=== PATIENT | female | born 1935 | race African-American/Black ===

== ENCOUNTER 2020-10-07 22:39 | Emergency (ER) | payer MEDICARE, SELFPAY ==
--- NOTE | ~2020-10-07 | CT_ITS ---
EXAMINATION: CT brain wo con DATE: 10/07/2020 23:25 INDICATION: Headache. Patient on anticoagulants. TECHNIQUE: Computed tomography (CT) of the head was performed without intravenous contrast. The dose- length product was 908.00 mGy-cm. Automated exposure control and iterative reconstruction technique w ere employed. COMPARISON: CT dated 10/09/2018 FINDINGS: Stable extensive encephalomalacia of the right cerebral hemisphere. Encephalomalacia involv es the right frontal, parietal, occipital and temporal lobes. There is an old right craniotomy defect . There is ex vacuo dilation of the right lateral ventricle. There are scattered moderate periventric ular and subcortical white matter changes, most likely related to small vessel ischemic disease (micr oangiopathy). No acute infarction or hemorrhage. Paranasal sinuses and mastoids are pneumatized. IMPRESSION: 1. No acute intracranial abnormality. No significant interval change. Reviewed, dictated and finalized at location A.
--- NOTE | ~2020-10-07 | CT_ITS ---
EXAMINATION: CT cervical spine wo con DATE: 10/07/2020 23:25 INDICATION: Neck pain status post fall TECHNIQUE: Computed tomography (CT) of the cervical spine was performed without intravenous contrast. The dose-length product was 467 mGy-cm. Automated exposure control and iterative reconstruction tech nique were employed. COMPARISON: CT dated 10/09/2018 FINDINGS: Straightening of cervical lordosis, likely due to muscle spasm or patient positioning. Vert ebral body heights are maintained. There is anatomic alignment. There is mild multilevel uncinate and facet degenerative change. Odontoid process within normal limits. Lung apices are unremarkable. Cran iovertebral junction is normal. No evidence for perched facet. There is carotid atherosclerosis. Ther e is enlarged right thyroid gland containing a 3.3 cm low-density mass. No acute fracture, subluxatio n or spondylolisthesis. IMPRESSION: 1. No acute abnormality of the cervical spine. 2: Mild cervical spondylosis. 3: Right thyroid mass measuring up to 3.3 cm. Correlation with thyroid ultrasound recommended on a no nemergent basis. Reviewed, dictated and finalized at location A. IMPRESSION: 1. No acute abnormality of the cervical spine. 2: Mild cervical spondylosis. 3: Right thyroid mass measuring up to 3.3 cm. Correlation with thyroid ultrasou nd recommended on a nonemergent basis.
[2020-10-07 22:44] VITALS: BP 145/73; PULSE 67; RESP 14; TEMP 36.2; O2SAT 9
--- NOTE | 2020-10-07 23:38 | ED.GENADULT ---
HPI - General Adult General Chief complaint: Fall Stated complaint: fall out of bed-hit head Time Seen by Provider: 10/07/20 22:50 History of Present Illness HPI narrative: Patient is a 84-year-old female who presents the emergency department with chief complaint of fall. Patient reports she was in her bed and rolled out of her bed patient fell approximately 1 foot patient had no loss of consciousness reports that she has a headache patient reports that she is on an anticoagulant. Patient states that she only has a mild headache currently denies pain in her upper extremities lower extremities or back per EMS and per the care facility she is at her baseline neurological status Related Data Allergies Allergy/AdvReac Type Severity Reaction Status Date / Time No Known Allergies Allergy Unverified 10/09/18 21:19 Review of Systems Review of Systems: Narrative: A 10 system review of systems was completed on the patient and is negative except for what is stated in the HPI. Nursing and ancillary documentation was reviewed. PMFSH Past Medical History Medical History Anxiety disorder, unspecified Social History Social History Gender identity (if verbalized by the patient): Female Comments Patient lives at a care facility Exam Narrative: Exam Narrative: GENERAL: Well-appearing, well-nourished, and in no acute distress. HEAD: Normocephalic, atraumatic. EYES: PERRLA and EOMI. ENT: Nares clear, no rhinorrhea or epistaxis. Mucous membranes moist. NECK: Supple. CHEST: Clear to auscultation. No respiratory distress. HEART: Regular rate and rhythm. No murmur heard. Normal peripheral pulses. ABDOMEN: Soft, nontender, nondistended, normal active bowel sounds. EXTREMITIES: Normal range of motion. No edema. SKIN: Warm, dry, no rash. NEURO: No focal deficits. Alert and oriented x3. PSYCH: Normal mood and affect. Course Vital Signs Vital signs: Vital Signs Temperature 36.2 C L 10/07/20 22:44 Pulse Rate 67 10/07/20 22:44 Respiratory Rate 14 10/07/20 22:44 Blood Pressure 145/73 H 10/07/20 22:44 Pulse Oximetry 9 L 10/07/20 22:44 Temperature 36.2 C L 10/07/20 22:44 Pulse Rate 67 10/07/20 22:44 Respiratory Rate 14 10/07/20 22:44 Blood Pressure 145/73 H 10/07/20 22:44 Pulse Oximetry 9 L 10/07/20 22:44 Medical Decision Making Vital Signs Vital Signs: Vital Signs Temperature 36.2 C L 10/07/20 22:44 Pulse Rate 67 10/07/20 22:44 Respiratory Rate 14 10/07/20 22:44 Blood Pressure 145/73 H 10/07/20 22:44 Pulse Oximetry 9 L 10/07/20 22:44 Temperature 36.2 C L 10/07/20 22:44 Pulse Rate 67 10/07/20 22:44 Respiratory Rate 14 10/07/20 22:44 Blood Pressure 145/73 H 10/07/20 22:44 Pulse Oximetry 9 L 10/07/20 22:44 Discharge Plan Discharge Clinical Impression: Mass of thyroid region Head injury Qualifiers: Encounter type: initial encounter Qualified Code(s): S09.90XA - Unspecified injury of head, initial encounter Patient Disposition: Home, Self-Care Condition: Stable Instructions: Antibiotic Form, Head Injury (ED) Additional Instructions: The CAT scan of your neck incidentally found enlargement on your thyroid. It is recommended that you follow-up with your primary care physician for a thyroid ultrasound and further testing. Prescriptions: No Action lorazepam 0.5 mg tablet 0.5 mg PO TID Qty: 90 RF: 2 Follow-up/Referrals: Kevin Salmeron MD [Primary Care Provider] - Time of Disposition: 23:41
[2020-10-08] MEDS: ACETAMINOPHEN 500 MG TABLET 1000 MG PO (00:45)
[2020-10-08 01:04] VITALS: BP 142/74; PULSE 71; RESP 20; O2SAT 98
== END 2020-10-08 01:07 ==
PROVIDERS: Emergency Provider Emergency Medicine; PCP Family Medicine
DX: S09.90XA Unspecified injury of head, initial encounter (principal); E07.9 Disorder of thyroid, unspecified; Z79.01 Long term (current) use of anticoagulants; W06.XXXA Fall from bed, initial encounter
CPT/HCPCS: 70450; 72125; 99284; A9270

== ENCOUNTER 2020-11-11 19:23 | Emergency (ER) | payer MEDICARE, SELFPAY ==
--- NOTE | ~2020-11-11 | CT_ITS ---
EXAMINATION: CT brain wo con DATE: 11/11/2020 20:10 INDICATION: Status post fall. Headache. TECHNIQUE: Computed tomography (CT) of the head was performed without intravenous contrast. The dose- length product was 1059.33 mGy-cm. Automated exposure control and iterative reconstruction technique were employed. 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 There are scattered modera te periventricular and subcortical white matter changes, most likely related to small vessel ischemic disease (microangiopathy). There is intracranial atherosclerosis. There is compensatory dilation of the right lateral ventricle. There are surgical changes of the right skull. Paranasal sinuses and mas toids are pneumatized. No acute intracranial hemorrhage, infarction, mass or mass effect. IMPRESSION: 1. No acute intracranial abnormality. Reviewed, dictated and finalized at location A.
--- NOTE | ~2020-11-11 | CT_ITS ---
EXAMINATION: CT facial & cervical spine wo DATE: 11/11/2020 20:47 INDICATION: Status post fall. Facial and neck pain. TECHNIQUE: Computed tomography (CT) of the maxillofacial region and cervical spine was performed with out intravenous contrast. The dose-length product was 903.63 mGy-cm. Automated exposure control and i terative reconstruction technique were employed. COMPARISON: CT dated 10/07/2020 FINDINGS: MAXILLOFACIAL CT: There is a right frontoparietal craniotomy defect. No acute maxillofacial fracture. Mandible intact. Temporal mandibular joints are symmetric. Study limited by motion. No significant abnormality of the paranasal sinuses or mastoids. Zygomatic arches and pterygoid plates are normal. No nasal fracture. CERVICAL SPINE CT: Reversal of cervical lordosis, likely due to positioning or muscle spasm. Vertebral body heights are maintained. There is mild lower cervical spondylosis. Mild levoscoliosis. Odontoid process within nor mal limits. No significant paraspinal soft tissue abnormality. 3 cm right thyroid mass reidentified. Correlation with ultrasound recommended as clinically warranted. There is atherosclerosis of the rivas tid arteries and intracranial arteries. IMPRESSION: 1. No acute abnormality of the facial bones or cervical spine. Reviewed, dictated and finalized at location A.
[2020-11-11 19:22] VITALS: BP 127/56; PULSE 68; RESP 16; TEMP 36.7; O2SAT 100
--- NOTE | 2020-11-11 19:30 | ED.GENADULT ---
HPI - General Adult General Chief complaint: Fall Stated complaint: glf - on blood thinners Time Seen by Provider: 11/11/20 19:26 Source: patient and EMS Mode of arrival: EMS Limitations: no limitations History of Present Illness HPI narrative: Patient is an 84-year-old female who presents for evaluation of fall out of her wheelchair. Patient states that she was reaching for something, when she fell forward, hitting her face onto the ground. No loss of consciousness. Patient is on anticoagulants. She denies vision changes, nausea or vomiting. She reports left-sided facial pain. No chest pain, neck pain, abdominal pain or lower back pain. Pain is dull, aching in nature, no exacerbation with movement. Related Data Allergies Allergy/AdvReac Type Severity Reaction Status Date / Time No Known Allergies Allergy Unverified 10/09/18 21:19 Review of Systems Review of Systems: Narrative: CONSTITUTIONAL: Denies fever, chills, or sweats. EYES: Denies visual changes, redness, or discharge. ENT: Denies rhinorrhea, congestion, sore throat, or otalgia. CARDIOVASCULAR: Denies chest pain, palpitations, or edema. RESPIRATORY: Denies cough or dyspnea. GASTROINTESTINAL: Denies abdominal pain, nausea, vomiting, or diarrhea. GENITOURINARY: Denies dysuria or hematuria. SKIN: Denies rash or itching. MUSCULOSKELETAL: Denies back pain, joint pain, or myalgia. NEUROLOGIC: Reports left sided headache, facial pain, denies numbness, or weakness. PMFSH Past Medical History Medical History Anxiety disorder, unspecified Social History Social History (Updated 11/11/20 @ 20:55 by Rosa Shipman MD) Alcohol intake: never Substance use: never Living arrangements: [facility] Gender identity (if verbalized by the patient): Female Exam Narrative: Exam Narrative: Nursing note and vitals reviewed. CONSTITUTIONAL: The patient appears well-developed and well-nourished. No distress. HEAD: Normocephalic and atraumatic. No ecchymosis. No abrasions. No hematomas. EYES: PERRL, EOMI, normal conjunctiva, anicteric EARS: External ears clear bilaterally, no hemotympanum MOUTH: OP clear, no erythema, exudates NECK: midline trachea, supple, FROM. No midline cervical spinal tenderness. CARDIOVASCULAR: Normal rate, regular rhythm, normal heart sounds and intact distal pulses. No murmurs, rubs, gallops. PULMONARY: Effort normal and breath sounds normal. No respiratory distress. The patient has no wheezes, rales, ronchi. No chest wall tenderness, crepitus or ecchymoses. ABDOMINAL: Soft. Nontender, nondistended. No palpable masses EXTREMITIES:: moving all extremities symmetrically. -RUE: No deformity. Normal ROM at shoulder, elbow, wrist, and hand. Sensation intact M/U/R. Pulse 2+. -LUE: No deformity. Normal ROM at shoulder, elbow, wrist, and hand., Sensation intact M/U/R. Pulse 2+ -RLE: No deformity. Limited ROM at hip, knee, ankle. Pt in wheelchair. Sensation intact distally. -LLE: No deformity. Limited ROM at hip, knee, ankle. Pt in wheelchair. Sensation intact distally. NEUROLOGY: The patient is alert and oriented to person, place, and time. Course Vital Signs Vital signs: Vital Signs Temperature 36.7 C 11/11/20 19:22 Pulse Rate 68 11/11/20 19:22 Respiratory Rate 16 11/11/20 19:22 Blood Pressure 127/56 L 11/11/20 19:22 Pulse Oximetry 100 11/11/20 19:22 Temperature 36.7 C 11/11/20 19:22 Pulse Rate 68 11/11/20 19:22 Respiratory Rate 16 11/11/20 19:22 Blood Pressure 127/56 L 11/11/20 19:22 Pulse Oximetry 100 11/11/20 19:22 Medical Decision Making [facility] Narrative Medical decision making narrative: Patient is an 84-year-old who presented after a fall from her wheelchair. No prodromal symptoms prior to the fall. Patient had been reaching for something, this does seem mechanical in nature. No significant head trauma found on exam. No cervical spine p
[2020-11-11 23:01] VITALS: BP 131/86; PULSE 75; RESP 16; TEMP 36.7; O2SAT 97
== END 2020-11-11 23:02 ==
PROVIDERS: Emergency Provider Emergency Medicine; PCP Family Medicine
DX: R51.9 Headache, unspecified (principal); Z79.01 Long term (current) use of anticoagulants; W05.0XXA Fall from non-moving wheelchair, initial encounter
CPT/HCPCS: 70450; 70486; 72125; 99284

== ENCOUNTER 2020-12-11 13:54 | Emergency (ER) | payer MEDICARE, SELFPAY ==
--- NOTE | ~2020-12-11 | XR_ITS ---
EXAMINATION: XR chest 1V portable DATE: 12/11/2020 15:16 INDICATION: Wheezing. Choking. TECHNIQUE: A single frontal view of the chest was obtained. COMPARISON: Chest single view 03/07/2018, CT cervical spine 11/11/2020 FINDINGS: There is no pneumonia, pleural effusion, pneumothorax. The heart size is normal. 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 Reviewed, dictated and finalized at location A. IMPRESSION: 1. Intrathoracic goiter.
[2020-12-11 14:09] VITALS: BP 149/69; PULSE 78; RESP 13; TEMP 36.3; O2SAT 100
[2020-12-11 14:25] VITALS: PULSE 71
[2020-12-11 15:14] VITALS: BP 145/74; PULSE 80; RESP 14; O2SAT 97
--- NOTE | 2020-12-11 15:18 | ED.GENADULT ---
HPI - General Adult General Chief complaint: Shortness of Breath/Dyspnea Stated complaint: choking incident Time Seen by Provider: 12/11/20 14:15 Source: patient, EMS and RN notes reviewed Mode of arrival: EMS Limitations: dementia History of Present Illness HPI narrative: Patient is 84 years old -[place] female brought to the emergency room [facility] by ambulance because was a choking during lunch, wheezing and low blood pressure. The above symptoms are resolved when the ambulance arrived there. Currently patient is asymptomatic, looks comfortable, denying any symptoms Related Data Allergies Allergy/AdvReac Type Severity Reaction Status Date / Time No Known Allergies Allergy Unverified 12/11/20 13:58 Review of Systems Review of Systems: ROS unobtainable: Yes unobtainable due to mental status PMFSH Past Medical History Medical History Anxiety disorder, unspecified Social History Social History Alcohol intake: never Substance use: never Gender identity (if verbalized by the patient): Female Exam Narrative: Exam Narrative: General appearance: Well-developed, well-nourished, does not look in pain or distress Skin: Normal color Head: Normocephalic, nontraumatic Eyes: Clear conjunctiva ENT: Oropharynx normal, ears normal, nose normal Neck: Supple, nontender Chest and respiratory: Airway patent, no respiratory distress, no accessory muscle use Heart: Regular rate/rhythm Abdomen: Soft, nontender, no organomegaly, quiet bowel sounds Neurologic: Alert and oriented to her name only Course Course Emergency Course: Stable Vital Signs Vital signs: Vital Signs Temperature 36.3 C L 12/11/20 14:09 Pulse Rate 78 12/11/20 14:09 Respiratory Rate 13 12/11/20 14:09 Blood Pressure 149/69 H 12/11/20 14:09 Pulse Oximetry 100 12/11/20 14:09 Temperature 36.3 C L 12/11/20 14:09 Pulse Rate 80 12/11/20 15:14 Respiratory Rate 14 12/11/20 15:14 Blood Pressure 145/74 H 12/11/20 15:14 Pulse Oximetry 97 12/11/20 15:14 Medical Decision Making MDM Narrative Medical decision making narrative: Patient was choking during lunch. Chest x-ray ordered. Physical examination showed no signs of aspiration. Differential Diagnosis Differential Diagnosis: Aspiration, choking Vital Signs Vital Signs: Vital Signs Temperature 36.3 C L 12/11/20 14:09 Pulse Rate 78 12/11/20 14:09 Respiratory Rate 13 12/11/20 14:09 Blood Pressure 149/69 H 12/11/20 14:09 Pulse Oximetry 100 12/11/20 14:09 Temperature 36.3 C L 12/11/20 14:09 Pulse Rate 80 12/11/20 15:14 Respiratory Rate 14 12/11/20 15:14 Blood Pressure 145/74 H 12/11/20 15:14 Pulse Oximetry 97 12/11/20 15:14 Critical Care Time Critical Care Time Critical Care Time: Yes Total Critical Care Time: 30 Discharge Plan Discharge Clinical Impression: Swallowing disorder Patient Disposition: NH Intermediate/Asst Living Condition: Stable Instructions: Dysphagia (ED), Aspiration Precautions (ED) Additional Instructions: Return if symptoms are worsening , call your family physician for appointment, take Tylenol as as needed for aches and pain, continue home medications. Prescriptions: No Action lorazepam 0.5 mg tablet 0.5 mg PO Q6H Qty: 120 RF: 2 Follow-up/Referrals: Kevin Salmeron MD [Primary Care Provider] -
[2020-12-11 16:15] VITALS: BP 159/70; PULSE 75; RESP 18; O2SAT 98
--- NOTE | 2020-12-11 17:13 | PC.NURSE ---
Report given to [facility] at this time, transferred to Care center at [facility]. MN 81, RR 18, BP 118/57 with pulse ox of 98%.
== END 2020-12-11 17:27 ==
PROVIDERS: Emergency Provider Emergency Medicine; PCP Family Medicine
DX: R13.10 Dysphagia, unspecified (principal); F41.9 Anxiety disorder, unspecified
CPT/HCPCS: 71045; 99283

== ENCOUNTER 2021-04-14 09:57 | Emergency (ER) | payer MEDICARE, SELFPAY ==
--- NOTE | ~2021-04-14 | XR_ITS ---
EXAMINATION: XR chest 1V portable INDICATION: Weakness TECHNIQUE: Portable AP chest at 1036 hours COMPARISON: 12/11/2020 FINDINGS: The lungs are free of acute opacities. There is no pleural effusion or pneumothorax. The ca rdiomediastinal silhouette is normal. 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 IMPRESSION: 1. No acute cardiopulmonary abnormality. Reviewed, dictated and finalized at location A.
[2021-04-14 10:01] VITALS: BP 153/87; PULSE 85; RESP 18; TEMP 36.8; O2SAT 100
--- NOTE | 2021-04-14 10:13 | ED.GENADULT ---
HPI - General Adult General Chief complaint: Unspecified Stated complaint: hallucinationg, yelling at sd staff. Time Seen by Provider: 04/14/21 10:10 Source: family (Eleno PereyraESHA) and other ([facility]) Mode of arrival: EMS Limitations: clinical condition History of Present Illness HPI narrative: Patient is a 85-year-old female resenting from [facility] with chief complaint of yelling at staff and refusing to take her medication. Patient states that she does not have any complaints or concerns. Patient states that she refused her medication one time because she did not like the bitter taste and was not in the mood to have it on her stomach. Patient states that she may have raised her voice at the staff that she was frustrated. She states that they are lying on her saying she was hallucinating. Patient is alert to self, place and situation. Patient denies any fever, chills, nausea, vomiting, diarrhea, abdominal pain, chest pain, shortness of breath, urinary symptoms, or any areas of pain or injury. Patient's daughter Eleno states the last time she spoke to patient seemed to be at her baseline. She reports that patient does have temper tantrums sometimes and gets irritated with staff however this is also patient's baseline for many years and is not new behavior. Related Data Allergies Allergy/AdvReac Type Severity Reaction Status Date / Time No Known Allergies Allergy Unverified 12/11/20 13:58 Review of Systems Review of Systems: CONSTITUTIONAL: Denies fever, chills, or sweats. EYES: Denies visual changes, redness, or discharge. ENT: Denies rhinorrhea, congestion, sore throat, or otalgia. CARDIOVASCULAR: Denies chest pain, palpitations, or edema. RESPIRATORY: Denies cough or dyspnea. GASTROINTESTINAL: Denies abdominal pain, nausea, vomiting, or diarrhea. GENITOURINARY: Denies dysuria or hematuria. SKIN: Denies rash or itching. MUSCULOSKELETAL: Denies back pain, joint pain, or myalgia. NEUROLOGIC: Denies headache, numbness, dizziness, or weakness. PSYCHIATRIC: Denies anxiety or depression. [facility] Past Medical History Medical History Anxiety disorder, unspecified Social History Social History Alcohol intake: never Substance use: never Gender identity (if verbalized by the patient): Female Exam Narrative: GENERAL: Well-appearing, well-nourished, and in no acute distress. HEAD: Normocephalic, atraumatic. EYES: PERRLA and EOMI. ENT: Nares clear, no rhinorrhea or epistaxis. Mucous membranes moist. Oropharynx without tonsillar hypertrophy exudate or other lesions. Bilateral TMs pearly mccoy nonbulging CHEST: Clear to auscultation. No respiratory distress. No wheezes rales or rhonchi HEART: Regular rate and rhythm. No murmur heard. Normal peripheral pulses. ABDOMEN: Soft, nontender, nondistended, normal active bowel sounds. EXTREMITIES: Normal range of motion. No edema. SKIN: Warm, dry, no rash. NEURO: No focal deficits. Alert and oriented to person, place, and situation. Patient's speech clear and appropriate. Patient able to answer questions appropriately and can discuss the care home, her children, and series of events leading to her coming to the ER. Patient is calm and is not displaying any signs of acute neurologic abnormality. PSYCH: Normal mood and affect. Cooperative. Course Vital Signs Vital signs: Vital Signs Temperature 98.2 F 04/14/21 10:01 Pulse Rate 85 04/14/21 10:01 Respiratory Rate 18 04/14/21 10:01 Blood Pressure 153/87 H 04/14/21 10:01 Pulse Oximetry 100 04/14/21 10:01 Temperature 98.2 F 04/14/21 10:01 Pulse Rate 85 04/14/21 10:01 Respiratory Rate 18 04/14/21 10:01 Blood Pressure 153/87 H 04/14/21 10:01 Pulse Oximetry 100 04/14/21 10:01 Medical Decision Making MDM Narrative Medical decision making narrative: Misty
[2021-04-14 11:03] LABS: Basophils Percent Auto 0.5 % (0.2-1.2); Eosinophils Absolute Auto 0.1 K/mm3 (0-0.3); Eosinophils Percent Auto 1.2 % (0-4.4); Hematocrit 38.7 % (37.0-47.0); Hemoglobin 12.6 g/dL (12.0-15.0); Immature Granulocyte Absolute 0.05 K/mm3 (0.00-0.031); Immature Granulocyte Percent A 1.2 % (0-0.5); Lymphocytes Absolute Auto 1.58 K/mm3 (0.9-3.2); Lymphocytes Percent Auto 37.4 % (18.3-44.2); Mean Corpuscular HGB Conc 32.6 g/dl (32-36); Mean Corpuscular Hemoglobin 29.1 pg (26-34); Mean Corpuscular Volume 89.4 fl (80-100); Mean Platelet Volume 11.4 fl (7.4-10.4); Monocytes Absolute Auto 0.3 K/mm3 (0.1-0.6); Monocytes Percent Auto 7.6 % (2.6-8.5); Neutrophils Absolute Auto 2.2 K/mm3 (1.3-6.7); Neutrophils Percent Auto 52.1 % (45.5-73.1); Platelet Count Result 156 k/mm3 (150-375); Red Blood Count 4.33 M/mm3 (4.2-5.4); Red Cell Distribution Width 14.7 % (11.5-14.5); White Blood Count 4.2 K/mm3 (4.5-10.0)
[2021-04-14 11:10] LABS: Alanine Aminotransferase 20 U/L (4-35); Albumin Level 4.1 g/dL (3.5-5.1); Alkaline Phosphatase 141 U/L (38-126); Anion Gap 9 mmol/L (8-16); Aspartate Amino Transferase 26 U/L (14-36); Bilirubin,Total 0.4 mg/dL (0.2-1.3); Blood Urea Nitrogen 15 mg/dL (7-17); Calcium 9.7 mg/dL (8.4-10.2); Carbon Dioxide 25 mmol/L (22-30); Chloride 109 mmol/L (98-107); Estimated Glomerular Filt Rate > 60; Glucose 229 mg/dL (65-110); Potassium 4.3 mmol/L (3.4-5.0); Sodium 143 mmol/L (137-145)
[2021-04-14 11:32] LABS: Add Urine Microscopic? YES; Appearance Urine Cloudy (Clear); Bacteria Urine 1+ /hpf; Bilirubin Urine Negative (Negative); Blood Urine Negative (Negative); Color Urine Yellow (Yellow); Glucose Urine UA 3+ mg/dL (Negative); Ketones Urine Negative (Negative); Leukocyte Esterase Ur Trace LEU/UL (Negative); Mucus Urine Rare /lpf; Nitrate Urine Negative (Negative); Protein Urine Negative (Negative); RBC Urine 0-2 /hpf (0-2); Specific Grav Ur 1.015 (1.001-1.035); Squamous Epithelial Cell Urine Occasional /hpf (Few); Urobilinogen Urine Negative mg/dL (<2.0)
[2021-04-14 12:33] VITALS: BP 123/67; PULSE 85; RESP 18; O2SAT 97
[2021-04-14 12:55] LABS: Glucose Point of Care 198 mg/dl (65-105)
[2021-04-14] MEDS: INSULIN ASPART (*BKC) 100 UNITS/ML SUB-Q (13:06)
--- NOTE | 2021-04-14 13:54 | PC.NURSE ---
Patient yelling out in bed saying she wants her glasses and jacket. Patient reminded her belongings are still at [facility] and will be there when she gets back. Spoke to John at [facility] and he states this has been patient's baseline for him. Patient still alert to self and place.
[2021-04-14 15:06] VITALS: BP 143/87; PULSE 90; RESP 16; O2SAT 96
[2021-04-14 16:30] VITALS: BP 154/89; PULSE 87; RESP 18; O2SAT 98
== END 2021-04-14 14:30 ==
PROVIDERS: Physician Assistant; Emergency Provider Emergency Medicine; PCP Family Medicine
DX: R82.998 Other abnormal findings in urine (principal); E11.9 Type 2 diabetes mellitus without complications
CPT/HCPCS: 36415; 71045; 80053; 81001; 82948; 85025; 99283; J1815

== ENCOUNTER 2021-10-02 01:54 | Emergency (ER) | payer MEDICARE, SELFPAY ==
--- NOTE | ~2021-10-02 | CT_ITS ---
EXAMINATION: CT brain wo con DATE: 10/02/2021 03:00 INDICATION: Fall. TECHNIQUE: Computed tomography (CT) of the head was performed without intravenous contrast. The mA wa s adjusted according to patient size. Iterative reconstruction technique was employed. The dose-lengt h product was 983.67 mGy-cm. COMPARISON: Head CT 11/11/2020 FINDINGS: There is a large distribution of chronic encephalomalacia involving the right frontal, mayco etal, temporal, and occipital lobes. There are scattered areas of low attenuation in the cerebral whi te matter. There is no intracranial hemorrhage, acute infarction, or abnormal intracranial mass lesio n. There is ex vacuo dilatation of right lateral ventricle. Cavum septum pellucidum and vergae are no rosas. There are changes of right-sided craniotomy. There is mild mucosal thickening in the paranasal s inuses. The mastoid air cells are normal. The orbits are normal. IMPRESSION: 1. Large distribution of chronic encephalomalacia involving the right frontal, parietal, temporal, an d occipital lobes. 2. Stable moderate nonspecific cerebral white matter disease, which likely represents chronic small v essel ischemic disease. Reviewed, dictated and finalized at location [facility]. IMPRESSION: 1. Large distribution of chronic encephalomalacia involving the right frontal, parietal, temporal, and occipital lobes. 2. Stable moderate nonspecific cerebral white matter disease, which likely repr esents chronic small vessel ischemic disease.
[2021-10-02 01:51] VITALS: BP 141/89; PULSE 80; RESP 18; TEMP 36.1; O2SAT 100
--- NOTE | 2021-10-02 02:19 | ED.GENADULT ---
HPI - General Adult General Chief complaint: Fall Stated complaint: fall from bed on eliquis Time Seen by Provider: 10/02/21 02:15 Source: patient, EMS and RN notes reviewed Mode of arrival: EMS History of Present Illness HPI narrative: 85-year-old female presented to the emergency department from a local fdc after having a ground-level fall. Patient states when she fell she is unsure if she struck her head but she denies any head or facial injury. Patient denies any specific pain but states she just feels sore all over. Patient's primary complaint is that she is hungry. No external signs of injury. Related Data Allergies Allergy/AdvReac Type Severity Reaction Status Date / Time No Known Allergies Allergy Verified 10/02/21 01:59 Review of Systems Review of Systems: CONSTITUTIONAL: Denies fever, chills, or sweats. EYES: Denies visual changes, redness, or discharge. ENT: Denies rhinorrhea, congestion, sore throat, or otalgia. CARDIOVASCULAR: Denies chest pain, palpitations, or edema. RESPIRATORY: Denies cough or dyspnea. GASTROINTESTINAL: Denies abdominal pain, nausea, vomiting, or diarrhea. GENITOURINARY: Denies dysuria or hematuria. SKIN: Denies rash or itching. MUSCULOSKELETAL: Denies back pain, joint pain, or myalgia. NEUROLOGIC: Denies headache, numbness, or weakness. PMFSH Past Medical History Medical History Anxiety disorder, unspecified Social History Social History Alcohol intake: never Substance use: never Gender identity (if verbalized by the patient): Female Exam Narrative: APPEARANCE: Well appearing, no pain, no distress, well-nourished. HEAD: normocephalic, atraumatic. EYES: PERRLA/EOMI, conjunctivae clear. NOSE: Normal no drainage NECK: Supple. No adenopathy, no masses. RESPIRATORY: Airway patent, respirations nonlabored. Clear to auscultation bilaterally, no rales, rhonchi, wheezing. CARDIOVASCULAR: Regular rate and rhythm without murmurs rubs or gallops. ABDOMINAL: Soft, nontender, nondistended, normal bowel sounds MUSCULOSKELETAL: Moves all extremities. Strength/ROM intact, No edema, No calf tenderness. NEURO: Alert. Cranial nerves II through XII intact. Grossly intact SKIN: Warm, dry. Normal Color Course Course Emergency Course: Patient continues to deny any pain or injury. Patient's head CT was negative for acute intracranial abnormality. Patient was discharged back to her fdc Vital Signs Vital signs: Vital Signs Temperature 97.0 F L 10/02/21 01:51 Pulse Rate 80 10/02/21 01:51 Respiratory Rate 18 10/02/21 01:51 Blood Pressure 141/89 H 10/02/21 01:51 Pulse Oximetry 100 10/02/21 01:51 Temperature 97.0 F L 10/02/21 01:51 Pulse Rate 88 10/02/21 04:04 Respiratory Rate 14 10/02/21 04:04 Blood Pressure 157/79 H 10/02/21 04:04 Pulse Oximetry 100 10/02/21 04:04 Medical Decision Making Vital Signs Vital Signs: Vital Signs Temperature 97.0 F L 10/02/21 01:51 Pulse Rate 80 10/02/21 01:51 Respiratory Rate 18 10/02/21 01:51 Blood Pressure 141/89 H 10/02/21 01:51 Pulse Oximetry 100 10/02/21 01:51 Temperature 97.0 F L 10/02/21 01:51 Pulse Rate 88 10/02/21 04:04 Respiratory Rate 14 10/02/21 04:04 Blood Pressure 157/79 H 10/02/21 04:04 Pulse Oximetry 100 10/02/21 04:04 Imaging Data Radiologist's impression: stat rad CT head impression: Motion artifact administered restriction degrades the study. However no obvious acute intracranial processes identified. No ICH, mass-effect or edema. No evidence of acute cortical stroke. Periventricular small vessel ischemic change. Visualized sinuses and mastoid air cells are clear. Old right MCA territory infarct. New Incidental findings: None Discharge Plan Discharge Clinical Impression: Head injury Qualifiers: Encounter type: initial encounter Qualifie
[2021-10-02 04:04] VITALS: BP 157/79; PULSE 88; RESP 14; O2SAT 100
[2021-10-02 04:57] VITALS: PULSE 87; RESP 20; O2SAT 94
[2021-10-02 07:30] VITALS: BP 157/109; PULSE 78; RESP 18; O2SAT 99
== END 2021-10-02 07:30 ==
PROVIDERS: Emergency Provider Emergency Medicine; PCP Family Medicine
DX: S09.90XA Unspecified injury of head, initial encounter (principal); F41.9 Anxiety disorder, unspecified; Z79.01 Long term (current) use of anticoagulants; W06.XXXA Fall from bed, initial encounter
CPT/HCPCS: 70450; 99284

== ENCOUNTER 2021-10-10 13:15 | Outpatient (CLI) | payer MEDICARE, SELFPAY ==
--- NOTE | ~2021-10-10 | US_ITS ---
US breast BI complete 10/10/2021 14:47 Indication: Breast cancer. Procedure: High-resolution bilateral complete breast ultrasound including all 4 quadrants in the suba reolar locations. Mammogram could not be performed due to patient immobility. Comparison: Mammogram and ultrasound dated 12/09/2014 Findings: Examination extremely limited due to patient mobility and body habitus. Right breast ultrasound: At 10:00, 8 cm from the nipple, there is a slightly irregular shaped hypoech oic mass measuring 4 mm. No internal vascularity or significant posterior features. Left breast ultrasound: At 12:00 in the area of palpable concern there is a complex heterogeneous 5.3 cm mass with mixed posterior attenuation and heterogeneous internal vascularity. Impression: 1: Complex left breast mass measuring up to 5.3 cm at 12:00 in the area of palpable concern, suspicio us for malignancy. Ultrasound-guided biopsy recommended. BI-RADS Category 4. 2: Slightly irregular shaped hypoechoic 4 mm right breast mass at 10:00, 8 cm from the nipple, likely benign. BI-RADS Category 3. Reviewed, dictated and finalized at location [facility]. Impression: 1: Complex left breast mass measuring up to 5.3 cm at 12:00 in the area of palp able concern, suspicious for malignancy. Ultrasound-guided biopsy recommended. BI-RADS Category 4. 2: Slightly irregular shaped hypoechoic 4 mm right breast mass at 10:00, 8 cm f rom the nipple, likely benign. BI-RADS Category 3.
== END 2021-10-10 13:16 | disposition home or self-care (01) ==
LOC: ANHIMG 13:18
PROVIDERS: PCP Family Medicine; Visit Provider Nurse Practitioner Family
DX: R92.8 Other abnormal and inconclusive findings on diagnostic imaging of breast (principal); Z85.3 Personal history of malignant neoplasm of breast
CPT/HCPCS: 76641

== ENCOUNTER 2021-10-28 09:34 | Outpatient (CLI) | payer MEDICARE, SELFPAY ==
--- NOTE | ~2021-10-28 | US_ITS ---
EXAMINATION: US GUIDED NEEDLE BIOPSY WITH VACUUM ASSISTANCE DATE: 10/28/2021 11:17 CDT INDICATION: Left breast mass seen on prior examination. Ultrasound-guided core biopsy is requested t o evaluate for malignancy. TECHNIQUE AND FINDINGS: The risks and potential benefits of the procedure were discussed with the patient, and written inform ed consent was obtained. After sterile preparation of the left breast, 1% lidocaine was utilized for local anesthesia. 1% lidocaine with epinephrine was used for deep anesthesia. A 10G vacuum-assisted biopsy gun needle was advanced through to the outer edge of the region of inter est from a superior approach utilizing sonographic guidance. A total of 7 tissue core samples were o btained through the lesion. An Inrad tissue marker clip was then placed at the biopsy site. Hemostas is was achieved. The patient tolerated procedure well and there was no evidence of immediate complication. The patien t was given verbal instructions partly is from the department. The tissue samples were submitted to surgical pathology for histologic analysis. IMPRESSION: 1. Successful ultrasound-guided vacuum-assisted biopsy of left breast mass with tissue marker placem ent. Please refer to pathology report for histologic analysis. Reviewed, dictated and finalized at location [facility]. IMPRESSION: 1. Successful ultrasound-guided vacuum-assisted biopsy of left breast mass wit h tissue marker placement. Please refer to pathology report for histologic anal ysis.
== END 2021-10-28 09:35 | disposition home or self-care (01) ==
PROVIDERS: PCP Family Medicine; Visit Provider Nurse Practitioner Family
DX: C50.412 Malignant neoplasm of upper-outer quadrant of left female breast (principal)
CPT/HCPCS: 19083; 88305; 88342; 88360; A4648

== ENCOUNTER 2021-11-25 12:53 | Outpatient (CLI) | payer MEDICARE, SELFPAY ==
[2021-11-25 13:16] LABS: Eosinophils Percent Auto 0.3 % (0-4.4); Hematocrit 39.5 % (37.0-47.0); Hemoglobin 12.5 g/dL (12.0-15.0); Immature Granulocyte Absolute 0.06 K/mm3 (0.00-0.031); Lymphocytes Absolute Auto 1.65 K/mm3 (0.9-3.2); Lymphocytes Percent Auto 27.4 % (18.3-44.2); Mean Corpuscular HGB Conc 31.6 g/dl (32-36); Mean Corpuscular Hemoglobin 28.6 pg (26-34); Mean Corpuscular Volume 90.4 fl (80-100); Mean Platelet Volume 10.4 fl (7.4-10.4); Monocytes Absolute Auto 0.6 K/mm3 (0.1-0.6); Monocytes Percent Auto 9.5 % (2.6-8.5); Neutrophils Absolute Auto 3.7 K/mm3 (1.3-6.7); Neutrophils Percent Auto 61.8 % (45.5-73.1); Platelet Count Result 159 k/mm3 (150-375); Red Blood Count 4.37 M/mm3 (4.2-5.4); Red Cell Distribution Width 14.9 % (11.5-14.5)
[2021-11-25 16:15] LABS: Alanine Aminotransferase 35 U/L (6-35); Albumin Level 4.3 g/dL (3.5-5.1); Alkaline Phosphatase 327 U/L (38-126); Anion Gap 7 mmol/L (8-16); Aspartate Amino Transferase 41 U/L (14-36); Bilirubin,Total 0.4 mg/dL (0.2-1.3); Blood Urea Nitrogen 21 mg/dL (7-17); Calcium 9.3 mg/dL (8.4-10.2); Carbon Dioxide 30 mmol/L (22-30); Chloride 102 mmol/L (98-107); Estimated Glomerular Filt Rate > 60; Glucose 169 mg/dL (65-110); Potassium 4.6 mmol/L (3.4-5.0); Sodium 139 mmol/L (137-145)
[2021-11-29 08:09] LABS: CA 15-3 267 U/mL (<32)
== END 2021-11-25 12:54 | disposition home or self-care (01) ==
LOC: ANHLAB 12:56
PROVIDERS: PCP Family Medicine; Visit Provider Internal Medicine Hematology & Oncology
DX: C50.412 Malignant neoplasm of upper-outer quadrant of left female breast (principal); Z17.0 Estrogen receptor positive status [ER+]
CPT/HCPCS: 36415; 80053; 85025; 86300

== ENCOUNTER 2021-12-15 08:10 | Outpatient (CLI) | payer MEDICARE, SELFPAY ==
--- NOTE | ~2021-12-15 | CT_ITS ---
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 Automated exposure control and iterative reconstruction technique were employed. Exam dose: 1343.65 mGy-cm total exam DLP. COMPARISON: 04/06/2021 portable AP chest FINDINGS: CHEST CT: Prominent asymmetric up to 4.6 x 5.9 cm irregular soft tissue mass of the left breast. Thyroid goiter, involving particularly the right lobe, with leftward shift of the trachea. Heart size is within normal range. There is coronary artery calcification. No pericardial effusion. There is thoracic aortic calcification but no aneurysm or dissection. No hilar or mediastinal mass le anupam or lymphadenopathy. There is mild dependent atelectasis of the left upper and both lower lobes and mild discoid atelectas is or scarring of the superior segment of the right lower lobe. No pulmonary consolidation or pulmona ry mass lesion is identified. ABDOMEN/PELVIS CT: An IVC filter is present in the upper aspect of the inferior vena cava, above the level of the renal veins. There is a large ill-defined mass or confluence of masses in the central right hepatic lobe, measurin g in excess of 5 cm dimension. This is likely hepatic metastatic disease. Hepatocellular carcinoma wo uld be an additional consideration. The gallbladder is distended. There is either calcification of the gallbladder neck over a prominent calcified gallstone at the gallbladder neck. No gallbladder wall thickening or pericholecystic fluid or fat stranding is noted. Ultrasound of the gallbladder may be of assistance for more definitive gunnar luation. No bile duct or pancreatic duct dilatation is noted. Normal splenic size. No pancreatic mass lesion or calcification. Duodenal diverticulum. Bilateral adrenal hypertrophy, left greater than right. 8.3 mm lower pole right renal cyst. 4 mm lower pole left renal cyst. No urinary tract calculus or hyd roureteronephrosis. The urinary bladder is unremarkable. Status post hysterectomy. There is probably gaseous distention of the colon in a prominent amount of fecal material within the colon. There is some liquid stool in the right colon. No bowel obstruction, bowel wall thickening, pneumatosis or intraperitoneal free air is evident. Normal caliber of the abdominal aorta. No intraperitoneal, retroperitoneal or pelvic mass lesion or a denopathy or ascites is detected. Degenerative changes at the acromion clavicular joints and prominent osteoarthritic change at the gle nohumeral joints. There is degenerative change of the cervical, thoracic and lumbar spine in addition to prominent thoracolumbar scoliosis. No suspicious osteolytic or osteoblastic lesions are identifie d. IMPRESSION: Large left breast mass consistent with clinical diagnosis of breast cancer Probable prominent hepatic metastatic disease; diffusion diagnosis includes hepatocellular carcinoma Thyroid goiter IVC filter above renal veins Duodenal diverticulum Bilateral adrenal hypertrophy Small renal cysts Status post hysterectomy Reviewed, dictated and finalized at [facility]. Reviewed, dictated and finalized at location [facility]. IMPRESSION: Large left breast mass consistent with clinical diagnosis of breas t cancer Probable prominent hepatic metastatic disease; diffusion diagnosis includes hep atocellular carcinoma Thyroid goiter IVC filter above renal veins Duodenal diverticulum Bilateral adrenal hypertrophy Small renal cysts Status post hysterectomy
== END 2021-12-15 08:11 | disposition home or self-care (01) ==
PROVIDERS: PCP Family Medicine; Visit Provider Internal Medicine Hematology & Oncology
DX: C50.412 Malignant neoplasm of upper-outer quadrant of left female breast (principal); Z17.0 Estrogen receptor positive status [ER+]; E04.9 Nontoxic goiter, unspecified; N28.1 Cyst of kidney, acquired; N28.81 Hypertrophy of kidney; K57.10 Diverticulosis of small intestine without perforation or abscess without bleeding
CPT/HCPCS: 71260; 74177; Q9967

== ENCOUNTER 2022-03-11 20:43 | Emergency (ER) | payer MEDICARE, SELFPAY ==
--- NOTE | ~2022-03-11 | CT_ITS ---
EXAMINATION: CT cervical spine wo con DATE: 03/11/2022 21:04 INDICATION: Patient fell and struck back of head TECHNIQUE: Computed tomography (CT) of the cervical spine was performed without intravenous contrast. Automated exposure control and iterative reconstruction technique were employed. Exam dose: 421.76 mGy-cm total exam DLP. COMPARISON: 11/11/2020 CT cervical spine FINDINGS: C1 and C2 are normally aligned and the odontoid process is intact. No fracture or dislocati on or locked facet or prevertebral soft tissue swelling. Moderately prominent degenerative disc disease at C5-6 and C6-7 and C7-T1. There is reversal cervical curvature which may be due to positioning or muscle spasm. IMPRESSION: Moderate cervical spondylosis; though fracture or dislocation or locked facet Reviewed, dictated and finalized at [facility]. Reviewed, dictated and finalized at location [facility]. IMPRESSION: Moderate cervical spondylosis; though fracture or dislocation or l ocked facet
--- NOTE | ~2022-03-11 | CT_ITS ---
EXAMINATION: CT brain wo con DATE: 03/11/2022 21:03 INDICATION: Patient fell and struck back of head TECHNIQUE: Computed tomography (CT) of the head was performed without intravenous contrast. The mA wa s adjusted according to patient size. Iterative reconstruction technique was employed. Exam dose: 60 5.33 mGy-cm total exam DLP. COMPARISON: 10/02/2021 CT brain FINDINGS: Status post right craniotomy. Again noted is a huge area of encephalomalacia the right cere bral hemisphere including frontal, parietal, temporal and occipital regions, including portions of an terior, middle and posterior cerebral artery territories. This is chronic and stable since 10/02/2021. There is central and cortical cerebral and cerebellar atrophy. Cavum septum pellucidum and cavum vergae, anatomic variants. Prominent bilateral carotid siphon internal carotid artery calcifications. There is nonspecific dimin ished attenuation cerebral white matter, likely due to chronic small vessel ischemic changes. No intracranial mass lesion or hemorrhage, midline shift or mass effect effect or subdural or epidura l hematoma is detected. No skull fracture is detected. Included paranasal sinuses and mastoid air yolis ls are unremarkable. IMPRESSION: Status post right craniotomy. Chronic extensive encephalomalacia of the right cerebral h emisphere, stable since 10/02/2021 Cerebral atherosclerosis and chronic small vessel ischemic changes of the cerebral white matter Prominent cerebral and cerebellar atrophy No acute intracranial finding or significant change since 10/02/2021 Reviewed, dictated and finalized at [facility]. Reviewed, dictated and finalized at location [facility]. IMPRESSION: Status post right craniotomy. Chronic extensive encephalomalacia o f the right cerebral hemisphere, stable since 10/02/2021 Cerebral atherosclerosis and chronic small vessel ischemic changes of the cereb ral white matter Prominent cerebral and cerebellar atrophy No acute intracranial finding or significant change since 10/02/2021
--- NOTE | ~2022-03-11 | XR_ITS ---
XR pelvis 1-2V DATE: 03/11/2022 21:15 INDICATION: Fall. Pelvic injury. TECHNIQUE: AP pelvis COMPARISON: 10/09/2018 pelvis and left hip FINDINGS: Levoscoliosis and degenerative disc disease of the lumbar spine. Osteopenia. The pubic symphysis and sacroiliac joints are intact. No pelvic fracture or bone destruction. Hip joint spaces appear symmetric and relatively preserved. No obvious fracture or evidence of disloc ation of either hip is noted on this limited single AP view. As a prominent amount fecal material in the rectum and colon. The thecal and bowel gas shadows limit evaluation of the sacrum. 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
[2022-03-11 20:51] VITALS: BP 142/74; PULSE 99; RESP 16; TEMP 36.8; O2SAT 98
--- NOTE | 2022-03-11 21:16 | ED.HEATRA ---
HPI - Head Injury General Chief complaint: Head Injury Stated complaint: hit back of head Time Seen by Provider: 03/11/22 20:46 History of Present Illness HPI Narrative: Patient from long term on [place] presents after she was eating dinner in the dining room, try to stand up from her wheelchair and tripped, then slid out of the wheelchair onto the ground, she states that she did hit her head but did not have any loss of consciousness, does not have any headache, neck pain, chest or abdominal pain, or pain in any of her extremities. She is denying any symptoms currently, she states that she would like some coffee. Related Data Allergies Allergy/AdvReac Type Severity Reaction Status Date / Time No Known Allergies Allergy Verified 10/02/21 01:59 Review of Systems Review of Systems: CONST: No fever. HEENT: Head injury C/V: No chest pain RESP: No cough GI: No abdominal : No dysuria. M/S: No joint pain. SKIN: No rash. NEURO: [No headache or focal numbness or weakness] PSYCH: [No depression] [facility] Past Medical History Medical History Anxiety disorder, unspecified Left breast mass Unspecified lump in the left breast, overlapping quadrants Social History Social History Alcohol intake: never Substance use: never Gender identity (if verbalized by the patient): Female Exam Narrative: EXAMINATION OF ORGAN SYSTEMS/BODY AREAS: Constitutional: Vital signs per nursing GENERAL:[No acute distress, non-toxic appearing.] HEAD: Some small abrasions on the top of the head, nontender EYES: EOMI, conjunctiva normal ENT: Hearing grossly intact LUNGS: Nonlabored breathing. HEART: [Regular rate and rhythm] ABD: [Soft], [nontender to palpation] EXT: No tenderness or deformities to the extremities SKIN: [No rashes or lesions.] NEURO: [Alert and oriented x 3.] PSYCH: Normal affect Course Vital Signs Vital signs: Vital Signs Temperature 98.2 F 03/11/22 20:51 Pulse Rate 99 03/11/22 20:51 Respiratory Rate 16 03/11/22 20:51 Blood Pressure 142/74 H 03/11/22 20:51 Pulse Oximetry 98 03/11/22 20:51 Temperature 98.2 F 03/11/22 20:51 Pulse Rate 99 03/11/22 20:51 Respiratory Rate 16 03/11/22 20:51 Blood Pressure 142/74 H 03/11/22 20:51 Pulse Oximetry 98 03/11/22 20:51 MDM - Head Injury MDM Narrative Medical decision making narrative: Patient presents after fall from chair, vital signs normal, exam shows well appearing patient, no tenderness or deformity anywhere, as she is on blood thinner CTs are obtained of head and C spine which are negative for acute abnormality; pelvis stable and negative for fracture. She is stable for dc home at this time w/ return precautions. Discharge Plan Discharge Clinical Impression: Fall Patient Disposition: NH Long Term/Asst Living Condition: Stable Instructions: Antibiotic Form, Fall Prevention for Older Adults (ED) Additional Instructions: Please follow up with your doctor in the next 2 days; come back sooner if you feel worse. Prescriptions: No Action nitrofurantoin monohyd/m-cryst [Macrobid] 100 mg capsule 100 mg PO Q12H 3 Days Qty: 6 0RF Rx Instructions: must administer with a meal/food nitrofurantoin monohyd/m-cryst [Macrobid] 100 mg capsule 100 mg PO Q12H 3 Days Qty: 6 0RF Rx Instructions: must administer with a meal/food tramadol 50 mg tablet 50 mg PO DAILY Qty: 30 0RF Rx Instructions: to be given qam for pain lorazepam 0.5 mg tablet 0.5 mg PO TID Qty: 90 1RF Follow-up/Referrals: Ellen Villegas MD [Primary Care Provider] -
--- NOTE | 2022-03-11 21:49 | PC.NURSE ---
called [facility] to request transport. ETA [id number]
[2022-03-11 22:23] VITALS: BP 130/86; PULSE 92; RESP 16; O2SAT 97
--- NOTE | 2022-03-11 23:48 | PC.NURSE ---
called [facility] for ETA update. ETA [id number]
== END 2022-03-12 00:30 ==
PROVIDERS: Emergency Provider Emergency Medicine; PCP Family Medicine
DX: S09.90XA Unspecified injury of head, initial encounter (principal); W05.0XXA Fall from non-moving wheelchair, initial encounter
CPT/HCPCS: 70450; 72125; 72170; 99284

== ENCOUNTER 2022-03-19 04:37 | Emergency (ER) | payer MEDICARE, SELFPAY ==
--- NOTE | ~2022-03-19 | XR_ITS ---
EXAMINATION: XR chest 1V portable DATE: 03/19/2022 05:35 INDICATION: Fall TECHNIQUE: frontal view of the chest was obtained. COMPARISON: Chest radiograph dated 04/06/[address] dated 12/05/2021 FINDINGS: The lungs are clear with no focal airspace opacities, pulmonary edema, pleural effusion or pneumothor ax. Arch size is normal. Right paratracheal mass at the thoracic inlet which exerts mass effect upon the right-sided tracheal which corresponds to a goiter chest on prior CT of the cervical spine. 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 IMPRESSION: 1. No acute cardiopulmonary disease. 2. 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 Reviewed, dictated and finalized at location A. IMPRESSION: 1. No acute cardiopulmonary disease. 2. 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
--- NOTE | ~2022-03-19 | CT_ITS ---
EXAMINATION: CT brain wo con DATE: 03/19/2022 05:22 INDICATION: Anticoagulated patient with unwitnessed fall. Fall. TECHNIQUE: Computed tomography (CT) of the head was performed without intravenous contrast. Sagittal and coronal reconstructions were performed. The mA was adjusted according to patient size. Iterative reconstruction technique was employed. The dose-length product was 605.33 mGy-cm. COMPARISON: head CT dated FINDINGS: There is a large distribution of chronic encephalomalacia involving the right frontal, parietal, temp oral, and occipital lobes. There are scattered areas of low attenuation in the cerebral white matter. There is no intracranial hemorrhage, acute infarction, or abnormal intracranial mass lesion. There i s ex vacuo dilatation of right lateral ventricle. 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 There are changes of right-sided craniotomy. The mastoid air cells and paranasal sinuses are normal. The o rbits are normal. Intracranial calcified cerebral atherosclerosis is noted. IMPRESSION: 1. Large distribution of chronic encephalomalacia involving the right frontal, parietal, temporal, an d occipital lobes. 2. Stable moderate nonspecific cerebral white matter disease, which likely represents chronic small v essel ischemic disease. Reviewed, dictated and finalized at location A. IMPRESSION: 1. Large distribution of chronic encephalomalacia involving the right frontal, parietal, temporal, and occipital lobes. 2. Stable moderate nonspecific cerebral white matter disease, which likely repr esents chronic small vessel ischemic disease.
--- NOTE | ~2022-03-19 | CT_ITS ---
EXAMINATION: CT cervical spine wo con DATE: 03/19/2022 05:22 INDICATION: unwitnessed fall, pt is poor historian TECHNIQUE: Computed tomography (CT) of the cervical spine was performed without intravenous contrast. Automated exposure control and iterative reconstruction technique were employed. The dose-length pro duct was 375.52 mGy-cm. COMPARISON: 03/11/2022 FINDINGS: Vertebral Body Alignment: Intact. Craniocervical and atlantoaxial alignment: Moderate degenerative change. Alignment intact. Osseous structures/fracture: No evidence of a lytic or blastic process in the visualized spine. No e vidence of acute fracture. Cervical soft tissues: The paraspinal soft tissues planes are maintained. 3.8 cm right thyroid nodule . Degenerative changes: Degenerative changes, without severe neural foraminal or central canal narrowin g. IMPRESSION: No acute fracture or traumatic malalignment in the cervical spine. 3.8 cm right thyroid nodule, recom mend outpatient thyroid ultrasound for further characterization. Reviewed, dictated and finalized at location K. IMPRESSION: No acute fracture or traumatic malalignment in the cervical spine. 3.8 cm right thyroid nodule, recommend outpatient thyroid ultrasound for further characteri zation.
--- NOTE | ~2022-03-19 | XR_ITS ---
EXAMINATION: XR pelvis 1-2V DATE: 03/19/2022 05:35 INDICATION: Fall TECHNIQUE: An anteroposterior view of the pelvis was obtained. COMPARISON: 03/11/2022 FINDINGS: Alignment is normal. No fracture. Mild bilateral hip and sacroiliac osteoarthritis. Multiple phleboli ths in the pelvis. Subcutaneous edema along the proximal thighs. IMPRESSION: 1. No acute osseous abnormality. Reviewed, dictated and finalized at location A.
[2022-03-19 04:41] VITALS: BP 121/69; PULSE 69; RESP 18; TEMP 36.4; O2SAT 99
[2022-03-19 04:59] LABS: Glucose Point of Care 201 mg/dl (65-105)
--- NOTE | 2022-03-19 06:41 | ED.GENADULT ---
HPI - General Adult General Chief complaint: Fall Stated complaint: unwitnessed fall blood thinners Time Seen by Provider: 03/19/22 04:40 History of Present Illness HPI narrative: Patient presents emergency department from [facility] via EMS for fall. Patient is ANO x1 at baseline and does not ambulate patient was found beside her bed with an unwitnessed fall by staff unsure if the patient hit her head the patient is unable to give history secondary to a history of dementia currently laying in bed the patient has no complaints of pain she is able to tell me her name she denies any headaches chest pain, shortness of breath abdominal pain or extremity pain Related Data Allergies Allergy/AdvReac Type Severity Reaction Status Date / Time No Known Allergies Allergy Verified 03/19/22 04:49 Review of Systems Review of Systems: Gen.: Denies fevers or chills ENT: Denies facial pain Respiratory: Denies shortness of breath CV: Denies chest pain GI: Denies abdominal pain nausea, emesis Musculoskeletal: Denies back pain or extremity pain Neuro: Denies headache Skin: Denies rash Except as documented, all other systems reviewed and negative PMFSH Past Medical History Medical History Anxiety disorder, unspecified Left breast mass Unspecified lump in the left breast, overlapping quadrants Social History Social History Alcohol intake: never Substance use: never Gender identity (if verbalized by the patient): Female Exam Narrative: APPEARANCE: Well appearing, no apparent distress, well-nourished. HEENT: normocephalic atraumtaic. No facial tenderness EYES: PERRL NECK: Supple. No midline tenderness to palpation. RESPIRATORY: No respiratory distress. Clear to auscultation bilaterally CARDIOVASCULAR: Regular rate and rhythm without murmurs rubs or gallops. ABDOMINAL: Soft, nontender, nondistended, no rebound or guarding MUSCULOSKELETAl: Moves all extremities. No tenderness to palpation of bilateral upper and lower extremities. No clubbing cyanosis or edema Back: No midline thoracic or lumbar tenderness to palpation NEURO: Awake and alert ?1. Follows commands. Speech normal. No focal deficits. SKIN:: Warm, dry. Normal Color Course Course Emergency Course: Discussed with patient results of workup and diagnosis. Discussed need for follow-up with primary care, proper use of medication, and reasons to return to the emergency department. Patient understands and agrees to current treatment plan Vital Signs Vital signs: Vital Signs Temperature 97.6 F 03/19/22 04:41 Pulse Rate 69 03/19/22 04:41 Respiratory Rate 18 03/19/22 04:41 Blood Pressure 121/69 03/19/22 04:41 Pulse Oximetry 99 03/19/22 04:41 Oxygen Delivery Room Air 03/19/22 04:41 Temperature 97.6 F 03/19/22 04:41 Pulse Rate 69 03/19/22 04:41 Respiratory Rate 18 03/19/22 04:41 Blood Pressure 121/69 03/19/22 04:41 Pulse Oximetry 99 03/19/22 04:41 Oxygen Delivery Room Air 03/19/22 04:41 Medical Decision Making Vital Signs Vital Signs: Vital Signs Temperature 97.6 F 03/19/22 04:41 Pulse Rate 69 03/19/22 04:41 Respiratory Rate 18 03/19/22 04:41 Blood Pressure 121/69 03/19/22 04:41 Pulse Oximetry 99 03/19/22 04:41 Oxygen Delivery Room Air 03/19/22 04:41 Temperature 97.6 F 03/19/22 04:41 Pulse Rate 69 03/19/22 04:41 Respiratory Rate 18 03/19/22 04:41 Blood Pressure 121/69 03/19/22 04:41 Pulse Oximetry 99 03/19/22 04:41 Oxygen Delivery Room Air 03/19/22 04:41 Lab Data Labs: Lab Results 03/19/22 Range/Units 04:54 POC Capillary Glucose 201 H (65-105) mg/dl Imaging Data Attestation: I personally reviewed and interpreted this imaging study as follows: My impression: Chest x-ray reviewed by myself shows no acute process Pulmonary x-ray reviewed by myself shows
[2022-03-19 07:30] VITALS: BP 118/68; PULSE 67; RESP 18; O2SAT 99
[2022-03-19 10:54] VITALS: BP 120/69; PULSE 65; RESP 18; O2SAT 99
[2022-03-19 11:31] VITALS: BP 147/66; PULSE 77; RESP 18; O2SAT 97
== END 2022-03-19 11:31 ==
PROVIDERS: Emergency Provider Emergency Medicine; PCP Family Medicine
DX: S00.93XA Contusion of unspecified part of head, initial encounter (principal); W19.XXXA Unspecified fall, initial encounter; F03.90 Unspecified dementia, unspecified severity, without behavioral disturbance, psychotic disturbance, mood disturbance, and anxiety; F41.9 Anxiety disorder, unspecified; Z79.899 Other long term (current) drug therapy
CPT/HCPCS: 70450; 71045; 72125; 72170; 82948; 99284